=== PATIENT | female | born 1980 | race Caucasian/White ===

== ENCOUNTER 2019-02-08 13:12 | Day surgery (SDC) | payer BC ==
[~2019-02-08] VITALS: Ht 172.7 cm; Wt 74.8 kg
[~2019-02-08 13:12] MED LIST: BUPIVACAINE/PF-EPI 0.5% 1:200K ONE
[2019-02-08] MEDS ORDERED: SCOPOLAMINE PATCH, 1.5MG PATCH.TD72 TD ONE (14:00)
[2019-02-08] MEDS ORDERED: MIDAZOLAM 1 MG/ML, 2ML ONE (14:00)
[2019-02-08] MEDS ORDERED: ONDANSETRON ODT 8 MG PO ONE (14:00)
[2019-02-08] MEDS ORDERED: ACETAMINOPHEN 500 MG TABLET PO ONE (14:00)
[2019-02-08] MEDS ORDERED: GABAPENTIN 300 MG CAPSULE PO ONE (14:00)
[2019-02-08] MEDS ORDERED: PLEASE ENTER HEIGHT AND WEIGHT MC SCH (14:00)
[2019-02-08] MEDS ORDERED: FENTANYL PF 250 MCG/5ML ONE (14:02)
[2019-02-08] MEDS ORDERED: PROPOFOL 10 MG/ML, 20ML ONE (14:03)
[2019-02-08] MEDS ORDERED: NEOSTIGMINE 1 MG/ML, 10ML ONE (14:03)
[2019-02-08] MEDS ORDERED: CEFAZOLIN 1,000 MG ONE (14:03)
[2019-02-08] MEDS ORDERED: ONDANSETRON 2MG/ML, 2ML ONE (14:03)
[2019-02-08] MEDS ORDERED: SUCCINYLCHOLINE 20 MG/ML, 10ML ONE (14:03)
[2019-02-08] MEDS ORDERED: ROCURONIUM 10MG/ML,5ML ONE (14:03)
[2019-02-08] MEDS ORDERED: DEXAMETHASONE 4 MG/ML, 1ML ONE (14:03)
[2019-02-08] MEDS ORDERED: LEVO175T5 PO (14:05)
[2019-02-08] MEDS ORDERED: VITAMIN B6 (14:07)
[2019-02-08] MEDS ORDERED: MULTIVITAMIN (14:07)
[2019-02-08] MEDS ORDERED: PHEN37.53 PO (14:07)
[2019-02-08 14:25] VITALS: BP 117/85
[2019-02-08] MEDS ORDERED: GLYCOPYRROLATE 0.2MG/1ML, 5ML ONE (14:26)
[2019-02-08] MEDS: LACTATED RINGERS 1,000 ML IV SCH ×2 (14:28→19:14)
[2019-02-08 14:29] LABS: HCG UR SG 1.002 (1.003-1.030)
[2019-02-08] MEDS ORDERED: ONDANSETRON 2MG/ML, 2ML IV PRN (16:00)
[2019-02-08] MEDS ORDERED: LORazepam 2 MG/ML, 1ML IVPush PRN (16:00)
[2019-02-08] MEDS ORDERED: HYDROmorphone 2 MG/ML, 1ML IVPush PRN (16:00)
[2019-02-08] MEDS ORDERED: MEPERIDINE/PF 25MG/0.5ML IVPush PRN (16:00)
[2019-02-08] MEDS ORDERED: ONDANSETRON ODT 8 MG PO PRN (16:00)
[2019-02-08] MEDS ORDERED: PROMETHAZINE 25 MG/ML, 1ML IV PRN (16:00)
[2019-02-08] MEDS ORDERED: OXYcodone 5 MG/5 ML ORAL.SOL UDC PO PRN (16:00)
[2019-02-08] MEDS ORDERED: FENTANYL PF 100 MCG/2ML ONE (16:34)
[2019-02-08] MEDS ORDERED: OXYcodone 5 MG/5 ML ORAL.SOL UDC ONE (16:35)
[2019-02-08] MEDS: FENTANYL PF 100 MCG/2ML IV PRN ×3 (16:36→19:14)
[2019-02-08] MEDS ORDERED: ONDANSETRON 2MG/ML, 2ML IVPush PRN (18:30)
[2019-02-08] MEDS ORDERED: LACTATED RINGERS 1,000 ML IV SCH (18:30)
[2019-02-08] MEDS ORDERED: MORPHINE SULFATE 4 MG/ML, 1ML IVPush PRN (18:30)
[2019-02-08 19:28] VITALS: BP 130/87
[2019-02-08] MEDS ORDERED: DIPHENHYDRAMINE 50 MG/ML, 1ML IVPush ONE (20:00)
== END 2019-02-08 23:28 | disposition home or self-care (01) ==
LOC: OUT 13:12 → 4NOR 17:31 → OUT 23:28
PROVIDERS: ATTEND Surgery
DX: M79.89 Other specified soft tissue disorders (principal)
CPT/HCPCS: 21931; 27327; 81025; 88304; J0330; J0690; J1100; J1200; J2250; J2405; J2704; J2710; J3010; J3490; J7120; Q0162; G0378

== ENCOUNTER → 2020-07-18 | Outpatient (CLI) | payer BC ==
[~2020-07-18] MED LIST changes: -BUPIVACAINE/PF-EPI 0.5% 1:200K ONE; +LEVO175T5 PO; +MULTIVITAMIN; +PHEN37.53 PO; +VITAMIN B6
== END | disposition home or self-care (01) ==
LOC: STAR 08:36
PROVIDERS: ATTEND Anesthesiology
DX: Z01.812 Encounter for preprocedural laboratory examination (principal); Z20.828 Contact with and (suspected) exposure to other viral communicable diseases
CPT/HCPCS: 36415; 87635

== ENCOUNTER 2020-07-25 05:48 | Day surgery (SDC) | payer BC ==
[2020-07-25] MEDS ORDERED: BUPIVACAINE/PF 0.5% ONE (06:42)
[2020-07-25] MEDS ORDERED: EPINEPHRINE 1 MG/ML, 1ML ONE (06:42)
== END 2020-07-25 06:45 | disposition home or self-care (01) ==
LOC: OUT 05:48
PROVIDERS: ATTEND Podiatrist Foot & Ankle Surgery
DX: Z02.9 Encounter for administrative examinations, unspecified (principal)
CPT/HCPCS: J0171